=== PATIENT | female | born 1995 | race African-American/Black ===

== ENCOUNTER 2016-11-28 18:52 | Emergency (ER) | payer SELFPAY ==
--- NOTE | ~2016-11-28 | CT4 ---
[facility] A Service of [facility] & [facility] RADIOLOGY TEXT RESULTS PATIENT: BANDAR MORALES LOCATION: SED : [birth year] UNIT #: [id number] AGE: [address]: Josie Quinn APRN SEX: F ORDER DR: [id number] [address] [address] [id number] E MR#: [id number] #: [id number] NAME: BANDAR MORALES : 1995 SEX: F STUDY DATE/TIME: 11/28/2016 20:01 UNIT: SED ROOM: STUDY DESCRIPTION: CT Abd and Pelv Wo Cont Attending Physician: Josie Quinn A.P.R.N. Ordering Physician: Josie Quinn A.P.R.N. Primary Care Physician: Isma Douglas M.D. MEDICAL IMAGING REPORT This report is preliminary unless electronic signature is present. EXAM CT abdomen and pelvis 11/28/2016 HISTORY Right flank pain since November 15, 2016. No history of stones. FINDINGS CT of the abdomen and pelvis performed without administration of oral or intravenous contrast. This CT examination was performed with one or more of the following radiation dose reduction techniques: automatic exposure control, adjustment of mA and/or kV according to patient size, and iterative reconstruction. There is some patchy and linear densities at the right lung base anteromedially favored to be atelectatic in nature. There is some patchy and linear densities at the bilateral posterior lung bases right greater than left favored to represent atelectasis as well. Inferior heart and pericardium unremarkable. Liver, gallbladder, spleen, pancreas, adrenal glands unremarkable. No hydronephrosis or nephrolithiasis. No perinephric inflammatory change. No ureteral dilatation. Ureters difficult to visualize due to their decompressed state. There are no secondary signs of recent stone passage. CT PELVIS: No inguinal adenopathy. Urinary bladder unremarkable. Uterus normal in appearance. Bilateral follicular ovarian cysts. Small amount of fluid deep pelvis. Not a drainable fluid collection. Likely physiologic in nature. There is no pelvic or retroperitoneal adenopathy. The distal esophagus, stomach, small bowel are unremarkable. Appendix normal. Colon remarkable. The unopacified vascular structures are normal in caliber. Bony structures unremarkable. IMPRESSION 1. No evidence of renal calculi or obstruction. No renal inflammatory changes and no indication of cystic or solid mass lesion on noncontrast enhanced imaging. [facility]. [facility] A Service of [facility] & [facility] RADIOLOGY TEXT RESULTS PATIENT: BANDAR MORALES LOCATION: SED : [birth year] UNIT #: [id number] AGE: [address]: Josie Quinn [employer]AGATION WORKER SEX: F ORDER DR: 2. Gallbladder, pancreas, appendix normal. 3. Small amount of free fluid in deep pelvis. Not a drainable fluid collection. Likely physiologic in nature. 4. Small follicular ovarian cysts bilaterally. No suspicious adnexal findings. 5. Remainder of study notable only for patchy and band-like areas of density at the bilateral lung bases more pronounced at the posterior lung bases right greater than left and most likely atelectatic in nature. Dictated by... Gregory Thompson M.D. THIS IS AN ELECTRONICALLY VERIFIED REPORT Gregory Thompson M.D. at 11/29/2016 10:49 PM REBECCA/joe TD: 11/29/2016 10:51 JOB #: [id number] MEDICAL IMAGING REPORT Page 1 of 1
[2016-11-28] MEDS ORDERED: NO MEDICATIONS (19:01)
[2016-11-28 19:26] LABS: URINE SOURCE CLEAN CATCH
[2016-11-28 19:28] LABS: URINE APPEARANCE CLEAR; URINE BILIRUBIN NEG (NEG); URINE BLOOD NEG (NEG); URINE COLOR YELLOW; URINE GLUCOSE NEG (NORM); URINE KETONE TRACE (NEG); URINE LEUKOCYTE ESTERASE NEG (NEG); URINE NITRATE NEG (NEG); URINE PH 6.5 (5-8); URINE PROTEIN NEG (NEG); URINE SPECIFIC GRAVITY 1.025 (1.003-1.035)
[2016-11-28 19:30] LABS: MICRO INDICATED? NO
[2016-11-28 20:10] LABS: BASOPHIL# 0.1 X10e3 (0-0.3); BASOPHIL% 0.8 % (0-2.5); EOSINOPHIL# 0.3 X10e3 (0-0.7); EOSINOPHIL% 2.7 % (0.0-7.0); HEMATOCRIT 37.8 % (35.0-45.0); HEMOGLOBIN 12.3 gm/dL (12.0-16.0); LYMPHOCYTE# 3.4 X10e3 (1.0-3.5); LYMPHOCYTE% 26.4 % (17.0-45.0); MEAN CELL VOLUME 89.2 FL (83-96); MEAN CORPUSCULAR HEMOGLOBIN 28.9 PG (28-34); MEAN CORPUSCULAR HGB CONC 32.4 g/dL (30-36); MEAN PLATELET VOLUME 9.2 FL (6.5-11.5); MONOCYTE# 1.2 X10e3 (0-1.0); MONOCYTE% 9.1 % (3.0-12.0); NEUTROPHIL# 7.9 X10e3 (1.5-7.1); PLATELET COUNT 293 X10e3 (140-420); RED BLOOD COUNT 4.23 X10e (3.90-5.30); RED CELL DISTRIBUTION WIDTH 12.7 % (11.0-15.5); WHITE BLOOD COUNT 12.9 X10e3 (4.0-10.5)
[2016-11-28 20:11] LABS: DIFF IND NO
[2016-11-28 20:23] LABS: ALBUMIN SERUM 3.6 g/dL (3.5-5.0); BILIRUBIN,TOTAL 0.2 mg/dL (0.2-2.0); BUN/CREATININE RATIO 14.28; CALCIUM SERUM 8.5 mg/dL (8.4-10.2); CREATININE SERUM 0.7 mg/dL (0.6-1.4); GLOM FILT RATE Estimated 144.6 mL/min (>60); POTASSIUM 3.7 mmol/L (3.5-5.1)
== END 2016-11-28 21:37 | disposition home or self-care (01) ==
LOC: SED 18:52
PROVIDERS: Nurse Practitioner Family
DX: R10.9 Unspecified abdominal pain (principal); Z91.018 Allergy to other foods
CPT/HCPCS: 36415; 74176; 80053; 81003; 83690; 84703; 85025; 96374; 99284; J1885